=== PATIENT | female | born 1930 | race Caucasian/White ===

== ENCOUNTER 2017-05-18 13:53 | Inpatient (IN) | payer MEDICARE, OTHER ==
[~2017-05-18] VITALS: Ht 152.4 cm; Wt 47.2 kg
[2017-05-18 15:11] LABS: BASOPHILS % (AUTO) 0.4 % (0.0-2.0); EOSINOPHILS % (AUTO) 0.1 % (0.0-3.0); HEMATOCRIT 38.9 % (37.0-47.0); HEMOGLOBIN 13.7 G/DL (12.0-16.0); LYMPHOCYTES % (AUTO) 11.2 % (20.0-45.0); MEAN CORPUSCULAR VOLUME 91 FL (80-99); MONOCYTES % (AUTO) 7.2 % (1.0-10.0); NEUTROPHILS % (AUTO) 81.1 % (45.0-75.0); PLATELET COUNT 145 K/UL (150-450); RED BLOOD COUNT 4.27 M/UL (4.20-5.40); RED CELL DISTRIBUTION WIDTH 11.5 % (11.6-14.8); WHITE BLOOD COUNT 11.8 K/UL (4.8-10.8)
[2017-05-18 15:26] LABS: ANION GAP 7 mmol/L (5-15); BLOOD UREA NITROGEN 22 mg/dL (7-18); CARBON DIOXIDE 30 MMOL/L (21-32); CHLORIDE 106 MMOL/L (98-107); CREATININE 0.7 MG/DL (0.55-1.30); POTASSIUM 4.2 MMOL/L (3.5-5.1); SODIUM 143 MMOL/L (136-145)
[2017-05-18] MEDS ORDERED: Enoxaparin 60mg Inj SUBQ SCH ×2 (15:30→21:00)
--- NOTE | 2017-05-18 15:34 | Emergency Room Report ---
History of Present Illness General Chief Complaint: Lower Extremity Injury Source: Patient, Family Member Present Illness HPI Patient is 86-year-old female who presented after increased left leg swelling for approximately 2 weeks. Patient had reported some recent trauma in which she was sitting in a chair and subsequently had a minor injury. Patient had been mostly in bed for a prolonged period of time due to recent diagnosis of early Parkinson's disease. Patient had previously been healthy and takes no medications other than coenzyme Q 10. The patient denies any other locations of pain at this time. Allergies: Coded Allergies: No Known Allergies (Unverified , 05/18/17) Patient History Past Medical History: see triage record Last Menstrual Period: na Reviewed Nursing Documentation: PMH: Agreed; PSxH: Agreed Nursing Documentation-PMH Past Medical History: No Stated History Review of Systems All Other Systems: negative except mentioned in HPI Physical Exam Vital Signs Date Time Temp Pulse Resp B/P (MAP) Pulse Ox O2 Delivery O2 Flow Rate FiO2 05/18/17 14:04 98.4 82 16 136/72 98 Room Air 98.4 Sp02 EP Interpretation: reviewed, normal General Appearance: normal inspection, well appearing, no apparent distress, alert, GCS 15, thin, Chronically Ill Head: atraumatic ENT: normal ENT inspection, hearing grossly normal, normal voice Neck: normal inspection, full range of motion, supple, no bony tend Respiratory: normal inspection, lungs clear, normal breath sounds, no respiratory distress, no retraction, no wheezing Cardiovascular #1: regular rate, rhythm, edema - Asymmetric edema involving the left lower extremity greater than the right lower extremity Cardiovascular #2: 2+ femoral (R), 2+ femoral (L), 2+ dorsalis pedis (R), 2+ dorsalis pedis (L) Gastrointestinal: normal inspection, normal bowel sounds, non tender, soft, no guarding, no hernia Genitourinary: no CVA tenderness Musculoskeletal: normal inspection, back normal, normal range of motion Neurologic: normal inspection, alert, oriented x3, responsive, student officer III-XII nml as tested, speech normal Psychiatric: normal inspection, judgement/insight normal, mood/affect normal Skin: normal color, other - flaky skin rash Medical Decision Making Diagnostic Impression: Primary Impression: Deep venous thrombosis ER Course Patient is a 86-year-old female with left lower extremity swelling. Differential diagnosis included but was not limited to fracture, contusion, renal stone, vascular insufficiency, aortic aneurysm, cellulitis. Because of complexity of patient's case laboratory testing and imaging studies were ordered. The laboratory testing was normal for mild thrombocytopenia. Duplex imaging of the left lower leg showed evidence of acute occlusive thrombus in the common femoral vein to the distal superficial femoral veins. The patient was given Lovenox. Dr. Gomez was contacted for inpatient management due to panel physician. Labs Test 05/18/17 14:50 White Blood Count 11.8 K/UL (4.8-10.8) Red Blood Count 4.27 M/UL (4.20-5.40) Hemoglobin 13.7 G/DL (12.0-16.0) Hematocrit 38.9 % (37.0-47.0) Mean Corpuscular Volume 91 FL (80-99) Mean Corpuscular Hemoglobin 32.0 PG (27.0-31.0) Mean Corpuscular Hemoglobin Concent 35.2 G/DL (32.0-36.0) Red Cell Distribution Width 11.5 % (11.6-14.8) Platelet Count 145 K/UL (150-450) Mean Platelet Volume 7.0 FL (6.5-10.1) Neutrophils (%) (Auto) 81.1 % (45.0-75.0) Lymphocytes (%) (Auto) 11.2 % (20.0-45.0) Monocytes (%) (Auto) 7.2 % (1.0-10.0) Eosinophils (%) (Auto) 0.1 % (0.0-3.0) Basophils (%) (Auto) 0.4 % (0.0-2.0) Prothrombin Time 10.9 SEC (9.30-11.50) Prothromb Time International Ratio 1.0 (0.9-1.1) Activated Partial Thromboplast Time 24 SEC (23-33) Sodium Level 143 MMOL/L (136-145) Potassium Level 4.2 MMOL/L (3.5-5.1) Chloride Level 106 MMOL/L (98-107) Carbon Dioxide Level 30 MMOL/L (21-32) Anion Gap 7 mmol/L (5-15) Blood Urea Nitrogen 22 mg/dL (7-18) Creatinine 0.7 MG/DL (0.55-1.30) Estimat Glomerular Filtration Rate mL/min (>60) Glucose Level 100 MG/DL (74-106) Calcium Level 10.0 MG/DL (8.5-10.1) EKG Diagnostic Results Rate: normal Rhythm: NSR ST Segments: no acute changes Last Vital Signs Date Time Temp Pulse Resp B/P (MAP) Pulse Ox O2 Delivery O2 Flow Rate FiO2 05/18/17 14:04 98.4 82 16 136/72 98 Room Air 98.4 Status: unchanged Disposition: ADMITTED INPATIENT Condition: Serious Scripts No Active Prescriptions or Reported Meds Referrals: SHIRLEY LIN (PCP) Renato Hernadez May 18, 2017 15:34
[2017-05-18 15:38] LABS: ALANINE AMINOTRANSFERASE 34 U/L (12-78); ALBUMIN 3.9 G/DL (3.4-5.0); ALBUMIN/GLOBULIN RATIO 1.3 (1.0-2.7); ALKALINE PHOSPHATASE 62 U/L (46-116); ASPARTATE AMINO TRANSFERASE 26 U/L (15-37); BILIRUBIN,TOTAL 1.1 MG/DL (0.2-1.0)
[2017-05-18 15:40] LABS: BILIRUBIN,DIRECT 0.3 MG/DL (0.0-0.3)
--- NOTE | 2017-05-18 17:31 | Diagnostic Imaging Report ---
Indication: Shortness of breath Technique: One view of the chest Comparison: none Findings: Lungs and pleural spaces are clear. Heart size is normal Impression: No acute process
--- NOTE | 2017-05-18 18:02 | Diagnostic Imaging Report ---
Indications: Pain Technique: Two views of the left femur Comparison: None Findings: No acute fractures. No dislocations. The joint spaces are preserved. No radiopaque foreign body. Bones are osteoporotic Impression: Osteoporosis. No acute process
--- NOTE | 2017-05-18 18:02 | Diagnostic Imaging Report ---
Indication: Pain Technique: 2 views of the left tibia and fibula Comparison: none Findings: Bones are osteoporotic. No acute fractures. No dislocations. No radiopaque foreign body Impression: No acute process
[2017-05-18 18:36] VITALS: BP 114/56
[2017-05-18 20:00] VITALS: BP 122/59
[2017-05-19] VITALS: BP 109/50
[2017-05-19 04:00] VITALS: BP 106/58
[2017-05-19 08:00] VITALS: BP 104/48
--- NOTE | 2017-05-19 08:28 | History & Physical ---
History and Physical History & Physicial seen and examined. Dictation completed. Sherrie Gomez MD May 19, 2017 08:28
--- NOTE | 2017-05-19 08:30 | General Progress Note ---
Assessment/Plan Status: stable Assessment/Plan 1- Acute LLE DVT- likely provoked 2- Leukocytosis 3- Abn Troponin 4- Deconditioning Plan: Hemonch consult monitor Troponin on Lovenox Subjective ROS Limited/Unobtainable: No Constitutional: Reports: weakness HEENT: Reports: no symptoms Cardiovascular: Reports: no symptoms Respiratory: Reports: no symptoms Allergies: Coded Allergies: No Known Allergies (Unverified , 05/18/17) Objective Last 24 Hour Vital Signs Date Time Temp Pulse Resp B/P (MAP) Pulse Ox O2 Delivery O2 Flow Rate FiO2 05/19/17 04:00 66 05/19/17 04:00 97.7 71 18 106/58 94 97.7 05/19/17 00:00 96.9 63 18 109/50 94 96.9 05/19/17 00:00 75 05/18/17 20:00 91 05/18/17 20:00 97.9 75 18 122/59 96 97.9 05/18/17 18:36 97.9 82 18 114/56 97 97.9 05/18/17 18:06 98.4 16 136/72 98 Room Air 98.4 05/18/17 14:04 98.4 82 16 136/72 98 Room Air 98.4 Intake and Output 05/18/17 05/19/17 19:00 07:00 Intake Total 0 ml 120 ml Output Total 400 ml Balance 0 ml -280 ml Intake Oral 0 ml 120 ml Output Urine Total 400 ml Laboratory Tests 05/18/17 14:50: White Blood Count 11.8H, Red Blood Count 4.27, Hemoglobin 13.7, Hematocrit 38.9 , Mean Corpuscular Volume 91, Mean Corpuscular Hemoglobin 32.0H, Mean Corpuscular Hemoglobin Concent 35.2, Red Cell Distribution Width 11.5L, Platelet Count 145L, Mean Platelet Volume 7.0, Neutrophils (%) (Auto) 81.1H, Lymphocytes (%) (Auto) 11.2L, Monocytes (%) (Auto) 7.2, Eosinophils (%) (Auto) 0.1, Basophils (%) (Auto) 0.4, Prothrombin Time 10.9, Prothromb Time International Ratio 1.0, Activated Partial Thromboplast Time 24, D-Dimer 12.16H , Sodium Level 143, Potassium Level 4.2, Chloride Level 106, Carbon Dioxide Level 30, Anion Gap 7, Blood Urea Nitrogen 22H, Creatinine 0.7, Estimat Glomerular Filtration Rate , Glucose Level 100, Calcium Level 10.0, Total Bilirubin 1.1H, Direct Bilirubin 0.3, Aspartate Amino Transf (AST/SGOT) 26, Alanine Aminotransferase (ALT/SGPT) 34, Alkaline Phosphatase 62, Troponin I 0.100H, Pro-B-Type Natriuretic Peptide 433H, Total Protein 6.9, Albumin 3.9, Globulin 3.0, Albumin/Globulin Ratio 1.3, Thyroid Stimulating Hormone (TSH) 0.885 05/19/17 06:20: White Blood Count [Pending], Red Blood Count [Pending], Hemoglobin [Pending], Hematocrit [Pending], Mean Corpuscular Volume [Pending], Mean Corpuscular Hemoglobin [Pending], Mean Corpuscular Hemoglobin Concent [Pending], Red Cell Distribution Width [Pending], Platelet Count [Pending], Mean Platelet Volume [ Pending], Neutrophils (%) (Auto) [Pending], Lymphocytes (%) (Auto) [Pending], Monocytes (%) (Auto) [Pending], Eosinophils (%) (Auto) [Pending], Basophils (%) (Auto) [Pending], Sodium Level [Pending], Potassium Level [Pending], Chloride Level [Pending], Carbon Dioxide Level [Pending], Blood Urea Nitrogen [Pending], Creatinine [Pending], Estimat Glomerular Filtration Rate [Pending], Glucose Level [Pending], Calcium Level [Pending], Total Bilirubin [Pending], Aspartate Amino Transf (AST/SGOT) [Pending], Alanine Aminotransferase (ALT/SGPT) [Pending] , Alkaline Phosphatase [Pending], Total Protein [Pending], Albumin [Pending], Globulin [Pending], Hemoglobin A1c [Pending], Triglycerides Level [Pending], Cholesterol Level [Pending], LDL Cholesterol [Pending], HDL Cholesterol [Pending ], Cholesterol/HDL Ratio [Pending] Height (Feet): 5 Height (Inches): 0.00 Weight (Pounds): 104 General Appearance: no apparent distress EENT: PERRL/EOMI Neck: supple Cardiovascular: normal rate Respiratory/Chest: lungs clear Abdomen: soft Extremities: non-tender Neurologic: animal therapist II-XII grossly normal, other - lag in memory Sherrie Gomez MD May 19, 2017 08:30
[2017-05-19 08:32] LABS: BASOPHILS % (AUTO) 0.5 % (0.0-2.0); EOSINOPHILS % (AUTO) 1.4 % (0.0-3.0); HEMATOCRIT 34.3 % (37.0-47.0); HEMOGLOBIN 11.9 G/DL (12.0-16.0); LYMPHOCYTES % (AUTO) 18.8 % (20.0-45.0); MEAN CORPUSCULAR VOLUME 91 FL (80-99); MONOCYTES % (AUTO) 9.3 % (1.0-10.0); PLATELET COUNT 134 K/UL (150-450); RED BLOOD COUNT 3.75 M/UL (4.20-5.40); RED CELL DISTRIBUTION WIDTH 11.6 % (11.6-14.8); WHITE BLOOD COUNT 8.2 K/UL (4.8-10.8)
[2017-05-19] MEDS: Pantoprazole Inj IVP SCH (08:35)
[2017-05-19 08:50] LABS: ALANINE AMINOTRANSFERASE 27 U/L (12-78); ALBUMIN 3.2 G/DL (3.4-5.0); ALBUMIN/GLOBULIN RATIO 1.2 (1.0-2.7); ALKALINE PHOSPHATASE 54 U/L (46-116); ANION GAP 7 mmol/L (5-15); ASPARTATE AMINO TRANSFERASE 22 U/L (15-37); BILIRUBIN,TOTAL 1.2 MG/DL (0.2-1.0); BLOOD UREA NITROGEN 17 mg/dL (7-18); CALCIUM 9.1 MG/DL (8.5-10.1); CARBON DIOXIDE 29 MMOL/L (21-32); CHLORIDE 106 MMOL/L (98-107); CHOLESTEROL 143 MG/DL (< 200); CREATININE 0.6 MG/DL (0.55-1.30); HDL CHOLESTEROL 88 MG/DL (40-60); POTASSIUM 3.8 MMOL/L (3.5-5.1); SODIUM 142 MMOL/L (136-145); TRIGLYCERIDES 32 MG/DL (30-150)
[2017-05-19 08:56] LABS: BILIRUBIN,DIRECT 0.2 MG/DL (0.0-0.3)
[2017-05-19 12:00] VITALS: BP 107/47
--- NOTE | 2017-05-19 12:10 | Consultation ---
History of Present Illness General Date patient seen: May 19, 2017 Chief Complaint: Lower Extremity Injury Present Illness HPI 86-year-old female who presented after increased left leg swelling for approximately 2 weeks. the pt is anxious and asking her INDUSTRIAL/ORGANIZATIONAL PSYCHOLOGIST to sit next to her. During the eval the pt was anxious and depressed. She stated that she has not been sleeping at night and has been fighting with her daughter. the pt has cognitive impairment. The pt perseverated that she has blood clot and it is a serious condition. Allergies: Coded Allergies: No Known Allergies (Unverified , 05/18/17) Medication History No Active Prescriptions or Reported Meds Patient History Limited by: medical condition History Provided By: Patient, Medical Record, PMD Healthcare decision maker Resuscitation status Full Code Advanced Directive on File No Past Medical/Surgical History Past Medical/Surgical History: (1) Deep venous thrombosis Review of Systems Psychiatric: Reports: prior hx, anxiety, depressed feelings, emotional problems Physical Exam General Appearance: no apparent distress, alert Neurologic: alert, oriented x 3, responsive, depressed affect Last 24 Hour Vital Signs Date Time Temp Pulse Resp B/P (MAP) Pulse Ox O2 Delivery O2 Flow Rate FiO2 05/19/17 08:00 99 05/19/17 08:00 97.0 93 18 104/48 95 97.0 05/19/17 04:00 66 05/19/17 04:00 97.7 71 18 106/58 94 97.7 05/19/17 00:00 96.9 63 18 109/50 94 96.9 05/19/17 00:00 75 05/18/17 20:00 91 05/18/17 20:00 97.9 75 18 122/59 96 97.9 05/18/17 18:36 97.9 82 18 114/56 97 97.9 05/18/17 18:06 98.4 16 136/72 98 Room Air 98.4 05/18/17 14:04 98.4 82 16 136/72 98 Room Air 98.4 Intake and Output 05/18/17 05/19/17 19:00 07:00 Intake Total 0 ml 120 ml Output Total 400 ml Balance 0 ml -280 ml Intake Oral 0 ml 120 ml Output Urine Total 400 ml Laboratory Tests Test 05/18/17 14:50 05/19/17 06:20 05/19/17 08:35 White Blood Count 11.8 K/UL (4.8-10.8) H 8.2 K/UL (4.8-10.8) Red Blood Count 4.27 M/UL (4.20-5.40) 3.75 M/UL (4.20-5.40) L Hemoglobin 13.7 G/DL (12.0-16.0) 11.9 G/DL (12.0-16.0) L Hematocrit 38.9 % (37.0-47.0) 34.3 % (37.0-47.0) L Mean Corpuscular Volume 91 FL (80-99) 91 FL (80-99) Mean Corpuscular Hemoglobin 32.0 PG (27.0-31.0) H 31.6 PG (27.0-31.0) H Mean Corpuscular Hemoglobin Concent 35.2 G/DL (32.0-36.0) 34.6 G/DL (32.0-36.0) Red Cell Distribution Width 11.5 % (11.6-14.8) L 11.6 % (11.6-14.8) Platelet Count 145 K/UL (150-450) L 134 K/UL (150-450) L Mean Platelet Volume 7.0 FL (6.5-10.1) 7.2 FL (6.5-10.1) Neutrophils (%) (Auto) 81.1 % (45.0-75.0) H 70.0 % (45.0-75.0) Lymphocytes (%) (Auto) 11.2 % (20.0-45.0) L 18.8 % (20.0-45.0) L Monocytes (%) (Auto) 7.2 % (1.0-10.0) 9.3 % (1.0-10.0) Eosinophils (%) (Auto) 0.1 % (0.0-3.0) 1.4 % (0.0-3.0) Basophils (%) (Auto) 0.4 % (0.0-2.0) 0.5 % (0.0-2.0) Prothrombin Time 10.9 SEC (9.30-11.50) 10.7 SEC (9.30-11.50) Prothromb Time International Ratio 1.0 (0.9-1.1) 1.0 (0.9-1.1) Activated Partial Thromboplast Time 24 SEC (23-33) D-Dimer 12.16 mg/L FEU (0.00-0.49) H Sodium Level 143 MMOL/L (136-145) 142 MMOL/L (136-145) Potassium Level 4.2 MMOL/L (3.5-5.1) 3.8 MMOL/L (3.5-5.1) Chloride Level 106 MMOL/L (98-107) 106 MMOL/L (98-107) Carbon Dioxide Level 30 MMOL/L (21-32) 29 MMOL/L (21-32) Anion Gap 7 mmol/L (5-15) 7 mmol/L (5-15) Blood Urea Nitrogen 22 mg/dL (7-18) H 17 mg/dL (7-18) Creatinine 0.7 MG/DL (0.55-1.30) 0.6 MG/DL (0.55-1.30) Estimat Glomerular Filtration Rate mL/min (>60) mL/min (>60) Glucose Level 100 MG/DL (74-106) 86 MG/DL (74-106) Calcium Level 10.0 MG/DL (8.5-10.1) 9.1 MG/DL (8.5-10.1) Total Bilirubin 1.1 MG/DL (0.2-1.0) H 1.2 MG/DL (0.2-1.0) H Direct Bilirubin 0.3 MG/DL (0.0-0.3) 0.2 MG/DL (0.0-0.3) Aspartate Amino Transf (AST/SGOT) 26 U/L (15-37) 22 U/L (15-37) Alanine Aminotransferase (ALT/SGPT) 34 U/L (12-78) 27 U/L (12-78) Alkaline Phosphatase 62 U/L (46-116) 54 U/L (46-116) Troponin I 0.100 ng/mL (0.000-0.056) 0.026 ng/mL (0.000-0.056) Pro-B-Type Natriuretic Peptide 433 pg/mL (0-125) H Total Protein 6.9 G/DL (6.4-8.2) 5.9 G/DL (6.4-8.2) L Albumin 3.9 G/DL (3.4-5.0) 3.2 G/DL (3.4-5.0) L Globulin 3.0 g/dL 2.7 g/dL Albumin/Globulin Ratio 1.3 (1.0-2.7) 1.2 (1.0-2.7) Thyroid Stimulating Hormone (TSH) 0.885 uiU/mL (0.358-3.740) Hemoglobin A1c 6.2 % (4.3-6.0) H Triglycerides Level 32 MG/DL (30-150) Cholesterol Level 143 MG/DL (< 200) LDL Cholesterol 59 mg/dL (<100) HDL Cholesterol 88 MG/DL (40-60) H Cholesterol/HDL Ratio 1.6 (3.3-4.4) L Height (Feet): 5 Height (Inches): 0.00 Weight (Pounds): 104 Medications Current Medications Medications (Trade) Dose Ordered Sig/Rufina Route PRN Reason Start Time Stop Time Status Last Admin Dose Admin Enoxaparin Sodium (Lovenox) 50 mg DAILY@1630 SUBQ 05/19/17 16:30 06/18/17 16:29 Pantoprazole (Protonix) 40 mg DAILY IVP 05/19/17 09:00 06/18/17 08:59 05/19/17 08:35 Warfarin Sodium (Coumadin per pharmacy) 1 ea DAILY PRN MISC Per rx protocol 05/19/17 04:30 06/18/17 04:29 Warfarin Sodium (Coumadin) 3 mg COUMADIN ONCE ORAL 05/19/17 17:00 05/19/17 17:01 Assessment/Plan Status: stable Assessment/Plan Anxiety d/o mdd -remeron 7.5 mg qhs -lexapro would interfere with vit K -the pt was reassured/Tonya Harmon M.D. May 19, 2017 12:10
[2017-05-19 16:00] VITALS: BP 101/49
--- NOTE | 2017-05-19 16:12 | Cardiology Report ---
APPROVED REPORT EKG Measurement Heart [id number] Normal sinus rhythm Possible Left atrial enlargement Possible Lateral infarct, age undetermined Abnormal ECG
[2017-05-19] MEDS ORDERED: Enoxaparin Sodium 300mg/3ml vial SUBQ SCH (16:30)
[2017-05-19] MEDS ORDERED: Warfarin Sodium 3mg ORAL ONE (17:00)
--- NOTE | 2017-05-19 18:45 | History and Physical Report ---
DATE OF ADMISSION: 05/18/2017 SOURCE OF INFORMATION: The patient and EMR. HISTORY OF PRESENT ILLNESS: The patient is a pleasant 86-year-old white female with unremarkable past medical history, reported possible trauma to the left lower extremity followed by increasing swelling in the same leg. The patient was assessed in the emergency room with initial stable vital signs and was found to have the acute DVT. The patient denies any shortness of breath or any chest pain. Denies any nausea, vomiting, diarrhea, or constipation. PAST SURGICAL HISTORY: Appendectomy. MEDICATIONS: Current hospital medication, warfarin pharmacy to dose, pharmacy to dose. ALLERGIES: NKDA. FAMILY HISTORY: Reviewed, noncontributory. REVIEW OF SYSTEMS: All 12 elements of review of systems reviewed, pertinent positives and negatives are documented. PHYSICAL EXAMINATION: VITAL SIGNS: Blood pressure 130/80, pulse oximetry 98% on room air, respiratory rate 18, and temperature 98.2 degrees. HEAD AND NECK: Atraumatic and normocephalic. CHEST: Clear to auscultation. HEART: S1 and S2. Regular rate and rhythm. ABDOMEN: Soft. No organomegaly. MUSCULOSKELETAL: Positive for shuffling gait secondary to the pain in the left lower extremity. Positive for swelling and edema in the left lower extremity. NEUROLOGIC: Awake, alert, and oriented x3. Positive for lack of memory. LABORATORY AND DIAGNOSTIC DATA: Labs dated 05/18/2017 shows WBC 11.8, hemoglobin 13.7, and platelets 145,000. Sodium 143, potassium 4.2, BUN 22, and creatinine 0.7. Troponin 0.1. BNP 433. ASSESSMENT AND PLAN: 1. Acute left lower extremity DVT - likely provoked. 2. Leukocytosis felt to be secondary to acute left lower extremity DVT. 3. Abnormal troponin, likely not secondary to ACS. 4. Dementia. 5. Deconditioning. 6. GI and DVT prophylaxis. PLAN OF CARE: Hematology/Oncology, Dr. Abad is consulted. We will monitor the patient's troponin and leukocyte counts. Continue with Lovenox. We will switch to new oral anticoagulation meds at discharge. Sherrie Gomez M.D. DR: JESS JOB#: [id number] CC: CASSANDRA
[2017-05-19 20:00] VITALS: BP 92/49
[2017-05-20] VITALS: BP 99/71
[2017-05-20 04:00] VITALS: BP 105/66
[2017-05-20 08:00] VITALS: BP 108/52
--- NOTE | 2017-05-20 08:45 | Consultation ---
DATE OF CONSULTATION: 05/19/2017 HEMATOLOGY/ONCOLOGY CONSULTATION CONSULTING PHYSICIAN: Enrique Abad M.D. REQUESTING PHYSICIAN: Sherrie Gomez M.D. REASON FOR CONSULTATION: Evaluation of DVT. IDENTIFYING DATA: Dear Dr. Gomez, The patient is a pleasant 86-year-old female with a past medical history significant for deconditioning as well as past medical history, which includes increased left leg swelling for the past several weeks, at this time presents with some recent trauma. She has been sitting in a chair and had a minor injury, had been mostly in bed for prolonged period of time, recently diagnosed with Parkinson disease. performed, which showed DVT, which is acute onset, has been started as well as Lovenox. Hematology Service was consulted for further evaluation and treatment of ongoing anticoagulation issues. PAST MEDICAL HISTORY: As noted above. PAST SURGICAL HISTORY: None reported. ALLERGIES: No known drug allergies. SOCIAL HISTORY: Currently, none noted. FAMILY HISTORY: Noncontributory. REVIEW OF SYSTEMS: CONSTITUTIONAL: No fever, chills, or night sweats. SKIN: No rashes, bumps, or itching. HEENT: No headache, hearing or vision changes. BREASTS: No lumps, pain, or discharge. PULMONARY: No cough, sputum, or shortness of breath. GASTROINTESTINAL: No nausea, vomiting, or diarrhea. GENITOURINARY: No dysuria, frequency, or urgency. MUSCULOSKELETAL: No joint swelling, muscle pain, or trauma. PHYSICAL EXAMINATION: VITAL SIGNS: Reviewed. GENERAL: No distress. PULMONARY: Decreased breath sounds. CARDIOVASCULAR: Regular rate. No S3 or S4. ABDOMEN: Soft, nontender, and nondistended. EXTREMITIES: No cyanosis, swelling, or edema. LABORATORY AND DIAGNOSTIC DATA: WBC 11.8, hemoglobin is 11.9, hematocrit 34, and platelet count 134,000. Coagulation, INR 1. Chemistry, BUN of 17 and creatinine 0.6. A1c is 6.2. Total bilirubin 1.2. Direct bilirubin 0.2. ASSESSMENT AND RECOMMENDATION: 1. Acute deep vein thrombosis of the left lower extremity. Currently, begin the patient on Coumadin as well as Lovenox. Maintain INR between 2 and 3. 2. Anemia of chronic disease. Continue to closely monitor for improvement. Hemoglobin goal is above 7. 3. Pancytopenia, likely secondary to underlying liver disease. Closely monitor for improvement. Platelet count 130,000. 4. Hypertension, systolic blood pressure goal less than 140. 5. Parkinson disease. Continue to closely monitor for improvement. Enrique Abad M.D. DR: RUBEN JOB#: [id number] CC:
[2017-05-20] MEDS: Pantoprazole Inj IVP SCH (09:24)
[2017-05-20 12:01] VITALS: BP 109/54
--- NOTE | 2017-05-20 12:54 | General Progress Note ---
Assessment/Plan Status: stable Assessment/Plan 1. Acute left lower extremity DVT - likely provoked. 2. Leukocytosis felt to be secondary to acute left lower extremity DVT. 3. Abnormal troponin, likely not secondary to ACS. 4. Dementia. 5. Deconditioning. 6. GI prophylaxis. 7. Deconditioning Plan: on coumadin DC to [facility] once medically stable. on Lovenox bridging I had a detailed conversation with the daughter Subjective ROS Limited/Unobtainable: No Constitutional: Reports: malaise HEENT: Reports: no symptoms Cardiovascular: Reports: no symptoms Respiratory: Reports: no symptoms Allergies: Coded Allergies: No Known Allergies (Unverified , 05/18/17) Objective Last 24 Hour Vital Signs Date Time Temp Pulse Resp B/P (MAP) Pulse Ox O2 Delivery O2 Flow Rate FiO2 05/20/17 12:01 97.5 69 18 109/54 96 Room Air 97.5 05/20/17 08:00 79 05/20/17 08:00 97.9 69 18 108/52 96 Room Air 97.9 05/20/17 04:00 61 05/20/17 04:00 97.6 62 18 105/66 97 Room Air 97.6 05/20/17 00:00 65 05/20/17 00:00 97.0 72 20 99/71 96 Room Air 97.0 05/19/17 20:00 98.6 75 20 92/49 96 Room Air 98.6 05/19/17 20:00 75 05/19/17 16:00 76 05/19/17 16:00 98.4 74 18 101/49 95 98.4 74 Intake and Output 05/19/17 05/20/17 19:00 07:00 Intake Total 360 ml Output Total 350 ml Balance 10 ml Intake Oral 360 ml Output Urine Total 350 ml # Voids 2 # Bowel Movements 2 Laboratory Tests 05/20/17 06:10: Prothrombin Time 10.5, Prothromb Time International Ratio 1.0 Height (Feet): 5 Height (Inches): 0.00 Weight (Pounds): 104 General Appearance: no apparent distress EENT: PERRL/EOMI Neck: supple Cardiovascular: normal rate Respiratory/Chest: lungs clear Abdomen: soft Extremities: other - atrophied muscle Neurologic: computer systems administrator II-XII grossly normal Sherrie Gomez MD May 20, 2017 12:54
[2017-05-20 16:00] VITALS: BP 117/58
[2017-05-20] MEDS ORDERED: Enoxaparin Sodium 300mg/3ml vial SUBQ SCH (16:30)
[2017-05-20] MEDS ORDERED: Warfarin Sodium 3mg ORAL ONE ×2 (17:00)
[2017-05-20] MEDS: Enoxaparin Sodium 300mg/3ml vial SUBQ SCH (18:15)
[2017-05-20 20:00] VITALS: BP 112/77
[2017-05-21] VITALS: BP 106/49
--- NOTE | 2017-05-21 00:13 | General Progress Note ---
Assessment/Plan Assessment/Plan 1. Acute deep vein thrombosis of the left lower extremity. --> Currently, begin the patient on Coumadin as well as Lovenox. --> Maintain INR between 2 and 3. 2. Anemia of chronic disease. --> Continue to closely monitor for improvement. Hemoglobin goal is above 7. --> Blood transfusion not required unless symptomatic or hgb below goal 3. Pancytopenia, likely secondary to underlying liver disease. --> Closely monitor for improvement. Platelet count 130,000. --> Levels improving. 4. Hypertension, systolic blood pressure goal less than 140. --> BP improved. 5. Parkinson disease. Continue to closely monitor for improvement. Subjective Date patient seen: May 20, 2017 Constitutional: Denies: no symptoms, chills, diaphoresis, fever, malaise, weakness, other HEENT: Denies: no symptoms, eye pain, blurred vision, tearing, double vision, ear pain, ear discharge, nose pain, nose congestion, throat pain, throat swelling, mouth pain, mouth swelling, other Cardiovascular: Denies: no symptoms, chest pain, edema, irregular heart rate, lightheadedness, palpitations, syncope, other Respiratory: Denies: no symptoms, cough, orthopnea, shortness of breath, SOB with excertion, SOB at rest, sputum, stridor, wheezing, other Gastrointestinal/Abdominal: Denies: no symptoms, abdomen distended, abdominal pain, black stools, tarry stools, blood in stool, constipated, diarrhea, difficulty swallowing, nausea, poor appetite, poor fluid intake, rectal bleeding , vomiting, other Genitourinary: Denies: no symptoms, burning, discharge, frequency, flank pain, hematuria, incontinence, pain, urgency, other Neurologic/Psychiatric: Denies: no symptoms, anxiety, depressed, emotional problems, headache, numbness, paresthesia, pre-existing deficit, seizure, tingling, tremors, weakness, other Hematologic/Lymphatic: Reports: anemia Allergies: Coded Allergies: No Known Allergies (Unverified , 05/18/17) Subjective Wbc and hgb levels improved. On anticoagulation. Objective Last 24 Hour Vital Signs Date Time Temp Pulse Resp B/P (MAP) Pulse Ox O2 Delivery O2 Flow Rate FiO2 05/20/17 20:00 99.0 76 20 112/77 93 99.0 05/20/17 16:00 99.2 75 18 117/58 96 Room Air 99.2 05/20/17 12:01 97.5 69 18 109/54 96 Room Air 97.5 05/20/17 12:00 74 05/20/17 08:00 79 05/20/17 08:00 97.9 69 18 108/52 96 Room Air 97.9 05/20/17 04:00 61 05/20/17 04:00 97.6 62 18 105/66 97 Room Air 97.6 Intake and Output 05/20/17 05/21/17 19:00 07:00 Intake Total 590 ml Balance 590 ml Intake Oral 590 ml # Voids 1 Laboratory Tests 05/20/17 06:10: Prothrombin Time 10.5, Prothromb Time International Ratio 1.0 Height (Feet): 5 Height (Inches): 0.00 Weight (Pounds): 104 General Appearance: no apparent distress Respiratory/Chest: lungs clear Abdomen: soft Enrique Abad MD May 21, 2017 00:13
[2017-05-21 04:00] VITALS: BP 121/60
[2017-05-21 08:00] VITALS: BP 102/49
[2017-05-21] MEDS: Pantoprazole Inj IVP SCH (08:20)
--- NOTE | 2017-05-21 08:51 | Diagnostic Imaging Report ---
APPROVED REPORT CPT Code: 87026 Present Symptoms Comments: Swelling LEFT LEG: Venous imaging reveals acute occlusive thrombus in the common femoral to distal superficial femoral veins. Imaging also reveals acute thrombus in the greater saphenous vein. Remainder of the deep venous system within normal limits. No evidence of thrombus in the popliteal and calf veins. Dr. Hernadez was notified of abnormal results at 1515 hours. INCIDENTAL FINDINGS: Imaging of the left popliteal fossa reveals a Bakers cyst measuring approximately 2.9 x 1.2 cm.
[2017-05-21 12:00] VITALS: BP 110/50
[2017-05-21] MEDS ORDERED: LORazepam 1mg tab ORAL PRN (14:00)
--- NOTE | 2017-05-21 14:10 | General Progress Note ---
Assessment/Plan Status: stable, progressing Assessment/Plan the pt is still anxious and depressed the pt was reassured cont remeron start ativan prn Subjective Date patient seen: May 21, 2017 Neurologic/Psychiatric: Reports: anxiety, depressed Allergies: Coded Allergies: No Known Allergies (Unverified , 05/18/17) Subjective the pt was anxious and insisted to check her throat. She believes she has flu. the pts throat was wnl. Objective Last 24 Hour Vital Signs Date Time Temp Pulse Resp B/P (MAP) Pulse Ox O2 Delivery O2 Flow Rate FiO2 05/21/17 08:00 98.0 86 18 102/49 98 Room Air 98.0 05/21/17 04:00 98.1 70 20 121/60 97 98.1 05/21/17 00:00 98.5 70 20 106/49 95 Room Air 98.5 05/20/17 20:00 99.0 76 20 112/77 93 99.0 05/20/17 16:00 99.2 75 18 117/58 96 Room Air 99.2 Intake and Output 05/20/17 05/21/17 19:00 07:00 Intake Total 590 ml Balance 590 ml Intake Oral 590 ml # Voids 1 2 Laboratory Tests 05/21/17 06:50: Prothrombin Time 10.1, Prothromb Time International Ratio 1.0 Height (Feet): 5 Height (Inches): 0.00 Weight (Pounds): 104 General Appearance: no apparent distress, alert Neurologic: alert, oriented x 3, responsive, depressed affect Tonya Andrews M.D. May 21, 2017 14:10
[2017-05-21 16:00] VITALS: BP 100/58
[2017-05-21] MEDS ORDERED: Warfarin Sodium 5mg ORAL ONE (17:00)
[2017-05-21] MEDS: Enoxaparin Sodium 300mg/3ml vial SUBQ SCH (17:26)
[2017-05-21 20:00] VITALS: BP 110/54
--- NOTE | 2017-05-21 23:26 | General Progress Note ---
Assessment/Plan Assessment/Plan 1. Acute deep vein thrombosis of the left lower extremity. --> Currently, begin the patient on Coumadin as well as Lovenox. --> Maintain INR between 2 and 3. Monitor closely. 2. Anemia of chronic disease. --> Continue to closely monitor for improvement. Hemoglobin goal is above 7. --> Blood transfusion not required unless symptomatic or hgb below goal --> Hemoglobin has been stable. 3. Pancytopenia, likely secondary to underlying liver disease. --> Closely monitor for improvement. Platelet count 130,000. --> Levels improving. 4. Hypertension, systolic blood pressure goal less than 140. --> BP improved. 5. Parkinson disease. Continue to closely monitor for improvement. Subjective Date patient seen: May 21, 2017 Constitutional: Denies: no symptoms, chills, diaphoresis, fever, malaise, weakness, other HEENT: Denies: no symptoms, eye pain, blurred vision, tearing, double vision, ear pain, ear discharge, nose pain, nose congestion, throat pain, throat swelling, mouth pain, mouth swelling, other Cardiovascular: Denies: no symptoms, chest pain, edema, irregular heart rate, lightheadedness, palpitations, syncope, other Respiratory: Denies: no symptoms, cough, orthopnea, shortness of breath, SOB with excertion, SOB at rest, sputum, stridor, wheezing, other Gastrointestinal/Abdominal: Denies: no symptoms, abdomen distended, abdominal pain, black stools, tarry stools, blood in stool, constipated, diarrhea, difficulty swallowing, nausea, poor appetite, poor fluid intake, rectal bleeding , vomiting, other Genitourinary: Denies: no symptoms, burning, discharge, frequency, flank pain, hematuria, incontinence, pain, urgency, other Neurologic/Psychiatric: Denies: no symptoms, anxiety, depressed, emotional problems, headache, numbness, paresthesia, pre-existing deficit, seizure, tingling, tremors, weakness, other Hematologic/Lymphatic: Reports: anemia Allergies: Coded Allergies: No Known Allergies (Unverified , 05/18/17) Subjective No acute events. H/H stable. Afebrile. Objective Last 24 Hour Vital Signs Date Time Temp Pulse Resp B/P (MAP) Pulse Ox O2 Delivery O2 Flow Rate FiO2 05/21/17 20:00 98.5 74 20 110/54 97 98.5 05/21/17 16:00 98.6 73 18 100/58 95 Room Air 98.6 05/21/17 12:00 97.8 88 18 110/50 99 Room Air 97.8 05/21/17 08:00 98.0 86 18 102/49 98 Room Air 98.0 05/21/17 04:00 98.1 70 20 121/60 97 98.1 05/21/17 00:00 98.5 70 20 106/49 95 Room Air 98.5 Intake and Output 05/20/17 05/21/17 19:00 07:00 Intake Total 590 ml Balance 590 ml Intake Oral 590 ml # Voids 1 2 Laboratory Tests 05/21/17 06:50: Prothrombin Time 10.1, Prothromb Time International Ratio 1.0 Height (Feet): 5 Height (Inches): 0.00 Weight (Pounds): 104 General Appearance: no apparent distress Respiratory/Chest: lungs clear Abdomen: soft Enrique Abad MD May 21, 2017 23:26
[2017-05-22] VITALS (7 sets, daily range): BP systolic 94–112; BP diastolic 47–61
[2017-05-22] MEDS: Pantoprazole Inj IVP SCH (08:39)
--- NOTE | 2017-05-22 12:13 | Internal Med Progress Note ---
Subjective Date of Service: May 21, 2017 Physician Name MichelleAnabelle Attending Physician Sherrie Gomez MD Current Medications Medications (Trade) Dose Ordered Sig/Rufina Route PRN Reason Start Time Stop Time Status Last Admin Dose Admin Enoxaparin Sodium (Lovenox) 50 mg DAILY@1630 SUBQ 05/20/17 18:00 06/19/17 17:59 05/21/17 17:26 Lorazepam (Ativan) 1 mg Q6H PRN ORAL For Anxiety 05/21/17 14:00 05/28/17 13:59 Mirtazapine (Remeron) 15 mg QHS ORAL 05/21/17 21:00 06/20/17 20:59 Pantoprazole (Protonix) 40 mg DAILY IVP 05/21/17 09:00 06/18/17 08:59 05/22/17 08:39 Warfarin Sodium (Coumadin per pharmacy) 1 ea DAILY PRN MISC Per rx protocol 05/20/17 14:00 06/19/17 13:59 Allergies: Coded Allergies: No Known Allergies (Unverified , 05/18/17) ROS Limited/Unobtainable: No Constitutional: Reports: no symptoms HEENT: Reports: no symptoms Cardiovascular: Reports: no symptoms Respiratory: Reports: no symptoms Gastrointestinal/Abdominal: Reports: no symptoms Genitourinary: Reports: no symptoms Neurologic/Psychiatric: Reports: no symptoms Subjective Late entry for 05/21/17-Computer down. 86 YO F admitted with left leg pain. Now DVT Left leg. Cover for Int Med-Dr Gomez. Objective Last Vital Signs Date Time Temp Pulse Resp B/P (MAP) Pulse Ox O2 Delivery O2 Flow Rate FiO2 05/22/17 08:00 97.9 84 17 103/47 96 Room Air 97.9 General Appearance: WD/WN, no apparent distress, alert EENT: PERRL/EOMI, normal ENT inspection, TMs normal Neck: non-tender, normal alignment, supple, normal inspection Cardiovascular: normal peripheral pulses, normal rate, regular rhythm, no gallop/murmur, no JVD Respiratory/Chest: chest wall non-tender, lungs clear, normal breath sounds, no respiratory distress, no accessory muscle use Abdomen: normal bowel sounds, non tender, soft, no organomegaly, no mass Extremities: normal range of motion, non-tender Edema: trace edema 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 (2) HTN (hypertension) (3) Anemia (4) Parkinson disease Assessment/Plan Discharge planning: [facility] May 22, 2017 12:13
--- NOTE | 2017-05-22 12:19 | Internal Med Progress Note ---
Subjective Date of Service: May 22, 2017 Physician Name SharpEleazar Attending Physician Sherrie Gomez MD Current Medications Medications (Trade) Dose Ordered Sig/Rufina Route PRN Reason Start Time Stop Time Status Last Admin Dose Admin Enoxaparin Sodium (Lovenox) 50 mg DAILY@1630 SUBQ 05/20/17 18:00 06/19/17 17:59 05/21/17 17:26 Lorazepam (Ativan) 1 mg Q6H PRN ORAL For Anxiety 05/21/17 14:00 05/28/17 13:59 Mirtazapine (Remeron) 15 mg QHS ORAL 05/21/17 21:00 06/20/17 20:59 Pantoprazole (Protonix) 40 mg DAILY IVP 05/21/17 09:00 06/18/17 08:59 05/22/17 08:39 Warfarin Sodium (Coumadin per pharmacy) 1 ea DAILY PRN MISC Per rx protocol 05/20/17 14:00 06/19/17 13:59 Allergies: Coded Allergies: No Known Allergies (Unverified , 05/18/17) ROS Limited/Unobtainable: No Constitutional: Reports: no symptoms HEENT: Reports: no symptoms Cardiovascular: Reports: no symptoms Respiratory: Reports: no symptoms Gastrointestinal/Abdominal: Reports: no symptoms Genitourinary: Reports: no symptoms Neurologic/Psychiatric: Reports: no symptoms Subjective 86 YO F admitted with left leg pain. Now DVT Left leg. Cover for Int Med-Dr Gomez. Objective Last Vital Signs Date Time Temp Pulse Resp B/P (MAP) Pulse Ox O2 Delivery O2 Flow Rate FiO2 05/22/17 12:00 98.9 18 18 110/54 96 Room Air 98.9 Laboratory Tests Test 05/22/17 08:10 Prothrombin Time 10.7 SEC (9.30-11.50) Prothromb Time International Ratio 1.0 (0.9-1.1) Intake and Output 05/21/17 05/22/17 19:00 07:00 Intake Total 980 ml Output Total 1 ml Balance 980 ml -1 ml Intake Oral 980 ml Output Urine Total 1 ml # Voids 4 Objective General Appearance: WD/WN, no apparent distress, alert EENT: PERRL/EOMI, normal ENT inspection, TMs normal Neck: non-tender, normal alignment, supple, normal inspection Cardiovascular: normal peripheral pulses, normal rate, regular rhythm, no gallop/murmur, no JVD Respiratory/Chest: chest wall non-tender, lungs clear, normal breath sounds, no respiratory distress, no accessory muscle use Abdomen: normal bowel sounds, non tender, soft, no organomegaly, no mass Extremities: normal range of motion, non-tender Edema: trace edema 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 (2) HTN (hypertension) (3) Anemia (4) Parkinson disease Status: unchanged Assessment/Plan Discharge planning: [facility] ELEAZAR SHARP May 22, 2017 12:19
[2017-05-22] MEDS ORDERED: Warfarin Sodium 5mg ORAL SCH (17:00)
[2017-05-22] MEDS ORDERED: Enoxaparin Sodium 300mg/3ml vial SUBQ SCH (18:00)
[2017-05-22] MEDS: PARoxetine 10mg tab ORAL SCH (21:00)
[2017-05-23] VITALS: BP 103/57
[2017-05-23 04:00] VITALS: BP 112/59
[2017-05-23 07:24] LABS: INR 1.2 (0.9-1.1)
[2017-05-23 07:30] LABS: EOSINOPHILS % (AUTO) 2.2 % (0.0-3.0); HEMATOCRIT 34.5 % (37.0-47.0); HEMOGLOBIN 12.1 G/DL (12.0-16.0); LYMPHOCYTES % (AUTO) 21.3 % (20.0-45.0); MEAN CORPUSCULAR VOLUME 90 FL (80-99); MONOCYTES % (AUTO) 8.3 % (1.0-10.0); NEUTROPHILS % (AUTO) 67.2 % (45.0-75.0); PLATELET COUNT 171 K/UL (150-450); RED BLOOD COUNT 3.82 M/UL (4.20-5.40); RED CELL DISTRIBUTION WIDTH 11.1 % (11.6-14.8); WHITE BLOOD COUNT 8.1 K/UL (4.8-10.8)
[2017-05-23 07:39] LABS: ANION GAP 7 mmol/L (5-15); BLOOD UREA NITROGEN 22 mg/dL (7-18); CARBON DIOXIDE 30 MMOL/L (21-32); CHLORIDE 107 MMOL/L (98-107); CREATININE 0.6 MG/DL (0.55-1.30); SODIUM 144 MMOL/L (136-145)
[2017-05-23 08:00] VITALS: BP 129/59
[2017-05-23] MEDS: Pantoprazole Inj IVP SCH (08:50)
--- NOTE | 2017-05-23 12:02 | Internal Med Progress Note ---
Subjective Date of Service: May 23, 2017 Physician Name SharpEleazar Attending Physician Sherrie Gomez MD Current Medications Medications (Trade) Dose Ordered Sig/Rufina Route PRN Reason Start Time Stop Time Status Last Admin Dose Admin Lorazepam (Ativan) 1 mg Q6H PRN ORAL For Anxiety 05/21/17 14:00 05/28/17 13:59 Pantoprazole (Protonix) 40 mg DAILY IVP 05/21/17 09:00 06/18/17 08:59 05/23/17 08:50 Paroxetine HCl (Paxil) 10 mg BEDTIME ORAL 05/22/17 21:00 06/21/17 20:59 Rivaroxaban (Xarelto) 15 mg BID ORAL 05/23/17 16:30 06/13/17 09:01 Rivaroxaban (Xarelto) 20 mg DAILY ORAL 06/13/17 18:00 11/19/17 17:59 Allergies: Coded Allergies: No Known Allergies (Unverified , 05/18/17) ROS Limited/Unobtainable: No Constitutional: Reports: no symptoms HEENT: Reports: no symptoms Cardiovascular: Reports: no symptoms Respiratory: Reports: no symptoms Gastrointestinal/Abdominal: Reports: no symptoms Genitourinary: Reports: no symptoms Neurologic/Psychiatric: Reports: no symptoms Subjective 86 YO F admitted with left leg pain. Now DVT Left leg. Cover for Int Med-Dr Gomez. Objective Last Vital Signs Date Time Temp Pulse Resp B/P (MAP) Pulse Ox O2 Delivery O2 Flow Rate FiO2 05/23/17 08:00 98.6 74 20 129/59 98 Room Air 98.6 Laboratory Tests Test 05/23/17 06:10 White Blood Count 8.1 K/UL (4.8-10.8) Red Blood Count 3.82 M/UL (4.20-5.40) L Hemoglobin 12.1 G/DL (12.0-16.0) Hematocrit 34.5 % (37.0-47.0) L Mean Corpuscular Volume 90 FL (80-99) Mean Corpuscular Hemoglobin 31.7 PG (27.0-31.0) H Mean Corpuscular Hemoglobin Concent 35.0 G/DL (32.0-36.0) Red Cell Distribution Width 11.1 % (11.6-14.8) L Platelet Count 171 K/UL (150-450) Mean Platelet Volume 6.9 FL (6.5-10.1) Neutrophils (%) (Auto) 67.2 % (45.0-75.0) Lymphocytes (%) (Auto) 21.3 % (20.0-45.0) Monocytes (%) (Auto) 8.3 % (1.0-10.0) Eosinophils (%) (Auto) 2.2 % (0.0-3.0) Basophils (%) (Auto) 1.0 % (0.0-2.0) Prothrombin Time 13.0 SEC (9.30-11.50) H Prothromb Time International Ratio 1.2 (0.9-1.1) H Sodium Level 144 MMOL/L (136-145) Potassium Level 4.0 MMOL/L (3.5-5.1) Chloride Level 107 MMOL/L (98-107) Carbon Dioxide Level 30 MMOL/L (21-32) Anion Gap 7 mmol/L (5-15) Blood Urea Nitrogen 22 mg/dL (7-18) H Creatinine 0.6 MG/DL (0.55-1.30) Estimat Glomerular Filtration Rate mL/min (>60) Glucose Level 94 MG/DL (74-106) Calcium Level 9.0 MG/DL (8.5-10.1) Intake and Output 05/22/17 05/23/17 19:00 07:00 Intake Total 650 ml 200 ml Balance 650 ml 200 ml Intake Oral 200 ml Other 650 ml # Voids 3 2 Objective General Appearance: WD/WN, no apparent distress, alert EENT: PERRL/EOMI, normal ENT inspection, TMs normal Neck: non-tender, normal alignment, supple, normal inspection Cardiovascular: normal peripheral pulses, normal rate, regular rhythm, no gallop/murmur, no JVD Respiratory/Chest: chest wall non-tender, lungs clear, normal breath sounds, no respiratory distress, no accessory muscle use Abdomen: normal bowel sounds, non tender, soft, no organomegaly, no mass Extremities: normal range of motion, non-tender Edema: trace edema 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 (2) HTN (hypertension) (3) Anemia (4) Parkinson disease Assessment/Plan Discharge planning: [facility] ELEAZAR SHARP May 23, 2017 12:02
[2017-05-23 12:05] VITALS: BP 102/51
--- NOTE | 2017-05-23 13:35 | General Progress Note ---
Assessment/Plan Assessment/Plan 1. Acute deep vein thrombosis of the left lower extremity. --> Currently, begin the patient on Coumadin as well as Lovenox. --> Maintain INR between 2 and 3. Monitor closely. --> Begin apeix and warfarin 2. Anemia of chronic disease. Mild at this time. --> Continue to closely monitor for improvement. Hemoglobin goal is above 7. --> Blood transfusion not required unless symptomatic or hgb below goal --> Hemoglobin has been stable. 3. Pancytopenia, likely secondary to underlying liver disease. --> Closely monitor for improvement. Platelet count 130,000. --> Levels improving. 4. Hypertension, systolic blood pressure goal less than 140. --> BP improved. 5. Parkinson disease. Continue to closely monitor for improvement. Subjective Date patient seen: May 22, 2017 Constitutional: Denies: no symptoms, chills, diaphoresis, fever, malaise, weakness, other HEENT: Denies: no symptoms, eye pain, blurred vision, tearing, double vision, ear pain, ear discharge, nose pain, nose congestion, throat pain, throat swelling, mouth pain, mouth swelling, other Cardiovascular: Denies: no symptoms, chest pain, edema, irregular heart rate, lightheadedness, palpitations, syncope, other Respiratory: Denies: no symptoms, cough, orthopnea, shortness of breath, SOB with excertion, SOB at rest, sputum, stridor, wheezing, other Gastrointestinal/Abdominal: Denies: no symptoms, abdomen distended, abdominal pain, black stools, tarry stools, blood in stool, constipated, diarrhea, difficulty swallowing, nausea, poor appetite, poor fluid intake, rectal bleeding , vomiting, other Genitourinary: Denies: no symptoms, burning, discharge, frequency, flank pain, hematuria, incontinence, pain, urgency, other Neurologic/Psychiatric: Denies: no symptoms, anxiety, depressed, emotional problems, headache, numbness, paresthesia, pre-existing deficit, seizure, tingling, tremors, weakness, other Hematologic/Lymphatic: Reports: anemia Allergies: Coded Allergies: No Known Allergies (Unverified , 05/18/17) Subjective H/H stable. No fever or chills. On anticoagulation. Objective Last 24 Hour Vital Signs Date Time Temp Pulse Resp B/P (MAP) Pulse Ox O2 Delivery O2 Flow Rate FiO2 4/1/18 12:05 97.9 76 21 102/51 99 Room Air 97.9 05/23/17 08:00 98.6 74 20 129/59 98 Room Air 98.6 05/23/17 04:00 98.1 68 20 112/59 100 98.1 05/23/17 00:00 98.5 73 20 103/57 96 98.5 05/22/17 20:00 99.0 78 20 112/57 100 99.0 05/22/17 16:00 97.8 78 18 111/54 100 Room Air 97.8 Intake and Output 05/22/17 05/23/17 19:00 07:00 Intake Total 650 ml 200 ml Balance 650 ml 200 ml Intake Oral 200 ml Other 650 ml # Voids 3 2 Laboratory Tests 05/23/17 06:10: White Blood Count 8.1, Red Blood Count 3.82L, Hemoglobin 12.1, Hematocrit 34.5L , Mean Corpuscular Volume 90, Mean Corpuscular Hemoglobin 31.7H, Mean Corpuscular Hemoglobin Concent 35.0, Red Cell Distribution Width 11.1L, Platelet Count 171, Mean Platelet Volume 6.9, Neutrophils (%) (Auto) 67.2, Lymphocytes (%) (Auto) 21.3, Monocytes (%) (Auto) 8.3, Eosinophils (%) (Auto) 2.2, Basophils (%) (Auto) 1.0, Prothrombin Time 13.0H, Prothromb Time International Ratio 1.2H, Sodium Level 144, Potassium Level 4.0, Chloride Level 107, Carbon Dioxide Level 30, Anion Gap 7, Blood Urea Nitrogen 22H, Creatinine 0.6, Estimat Glomerular Filtration Rate , Glucose Level 94, Calcium Level 9.0 Height (Feet): 5 Height (Inches): 0.00 Weight (Pounds): 104 General Appearance: no apparent distress EENT: normal ENT inspection Cardiovascular: normal rate Abdomen: soft Enrique Abad MD May 23, 2017 13:35
[2017-05-23 16:09] VITALS: BP 106/52
[2017-05-23] MEDS: Xarelto 15mg tab ORAL SCH (16:38)
[2017-05-23 20:00] VITALS: BP 117/60
[2017-05-23] MEDS: PARoxetine 10mg tab ORAL SCH (20:00)
[2017-05-24] VITALS: BP 111/55
--- NOTE | 2017-05-24 00:49 | General Progress Note ---
Assessment/Plan Assessment/Plan 1. Acute deep vein thrombosis of the left lower extremity. --> Currently, begin the patient on Coumadin as well as Lovenox. --> Maintain INR between 2 and 3. Monitor closely. --> Begin apeix and warfarin 2. Anemia of chronic disease. Mild at this time. --> Continue to closely monitor for improvement. Hemoglobin goal is above 7. --> Blood transfusion not required unless symptomatic or hgb below goal --> Hemoglobin has been stable, no prbc needed at this time 3. Pancytopenia, likely secondary to underlying liver disease. --> Closely monitor for improvement. Platelet count 130,000. --> Levels improving. 4. Hypertension, systolic blood pressure goal less than 140. --> BP improved. 5. Parkinson disease. Continue to closely monitor for improvement. Subjective Date patient seen: May 23, 2017 Constitutional: Denies: no symptoms, chills, diaphoresis, fever, malaise, weakness, other HEENT: Denies: no symptoms, eye pain, blurred vision, tearing, double vision, ear pain, ear discharge, nose pain, nose congestion, throat pain, throat swelling, mouth pain, mouth swelling, other Cardiovascular: Denies: no symptoms, chest pain, edema, irregular heart rate, lightheadedness, palpitations, syncope, other Respiratory: Denies: no symptoms, cough, orthopnea, shortness of breath, SOB with excertion, SOB at rest, sputum, stridor, wheezing, other Gastrointestinal/Abdominal: Denies: no symptoms, abdomen distended, abdominal pain, black stools, tarry stools, blood in stool, constipated, diarrhea, difficulty swallowing, nausea, poor appetite, poor fluid intake, rectal bleeding , vomiting, other Genitourinary: Denies: no symptoms, burning, discharge, frequency, flank pain, hematuria, incontinence, pain, urgency, other Neurologic/Psychiatric: Denies: no symptoms, anxiety, depressed, emotional problems, headache, numbness, paresthesia, pre-existing deficit, seizure, tingling, tremors, weakness, other Hematologic/Lymphatic: Reports: anemia Allergies: Coded Allergies: No Known Allergies (Unverified , 05/18/17) Subjective No respiratory distress. On anticoagulation. Objective Last 24 Hour Vital Signs Date Time Temp Pulse Resp B/P (MAP) Pulse Ox O2 Delivery O2 Flow Rate FiO2 4/1/18 20:00 98.3 71 18 117/60 95 98.3 05/23/17 16:09 98.9 79 18 106/52 97 Room Air 98.9 05/23/17 12:05 97.9 76 21 102/51 99 Room Air 97.9 05/23/17 08:00 98.6 74 20 129/59 98 Room Air 98.6 05/23/17 04:00 98.1 68 20 112/59 100 98.1 Intake and Output 05/23/17 05/24/17 19:00 07:00 Intake Total 720 ml Balance 720 ml Intake Oral 720 ml # Voids 3 # Bowel Movements 1 Laboratory Tests 05/23/17 06:10: White Blood Count 8.1, Red Blood Count 3.82L, Hemoglobin 12.1, Hematocrit 34.5L , Mean Corpuscular Volume 90, Mean Corpuscular Hemoglobin 31.7H, Mean Corpuscular Hemoglobin Concent 35.0, Red Cell Distribution Width 11.1L, Platelet Count 171, Mean Platelet Volume 6.9, Neutrophils (%) (Auto) 67.2, Lymphocytes (%) (Auto) 21.3, Monocytes (%) (Auto) 8.3, Eosinophils (%) (Auto) 2.2, Basophils (%) (Auto) 1.0, Prothrombin Time 13.0H, Prothromb Time International Ratio 1.2H, Sodium Level 144, Potassium Level 4.0, Chloride Level 107, Carbon Dioxide Level 30, Anion Gap 7, Blood Urea Nitrogen 22H, Creatinine 0.6, Estimat Glomerular Filtration Rate , Glucose Level 94, Calcium Level 9.0 Height (Feet): 5 Height (Inches): 0.00 Weight (Pounds): 104 General Appearance: no apparent distress Cardiovascular: normal rate Respiratory/Chest: lungs clear Abdomen: soft Enrique Abad MD May 24, 2017 00:49
[2017-05-24 03:51] VITALS: BP 100/53
[2017-05-24 06:31] LABS: BASOPHILS % (AUTO) 0.9 % (0.0-2.0); EOSINOPHILS % (AUTO) 2.5 % (0.0-3.0); HEMATOCRIT 36.2 % (37.0-47.0); HEMOGLOBIN 12.2 G/DL (12.0-16.0); LYMPHOCYTES % (AUTO) 23.5 % (20.0-45.0); MEAN CORPUSCULAR VOLUME 91 FL (80-99); MONOCYTES % (AUTO) 9.3 % (1.0-10.0); NEUTROPHILS % (AUTO) 63.8 % (45.0-75.0); PLATELET COUNT 187 K/UL (150-450); RED BLOOD COUNT 3.97 M/UL (4.20-5.40); RED CELL DISTRIBUTION WIDTH 11.2 % (11.6-14.8)
[2017-05-24 06:32] LABS: INR 1.5 (0.9-1.1)
[2017-05-24 07:36] LABS: ANION GAP 5 mmol/L (5-15); BLOOD UREA NITROGEN 22 mg/dL (7-18); CALCIUM 9.1 MG/DL (8.5-10.1); CARBON DIOXIDE 31 MMOL/L (21-32); CHLORIDE 107 MMOL/L (98-107); CREATININE 0.6 MG/DL (0.55-1.30); POTASSIUM 4.1 MMOL/L (3.5-5.1); SODIUM 142 MMOL/L (136-145)
[2017-05-24 08:00] VITALS: BP 110/52
[2017-05-24] MEDS: Xarelto 15mg tab ORAL SCH (08:59)
[2017-05-24] MEDS: Pantoprazole Inj IVP SCH (08:59)
[2017-05-24] MEDS ORDERED: XARELTO15 MG ORAL (10:38)
[2017-05-24] MEDS ORDERED: PAROXETINE HCL10 MG ORAL (10:38)
--- NOTE | 2017-05-24 10:41 | General Progress Note ---
Assessment/Plan Status: stable Assessment/Plan 1. Acute left lower extremity DVT - likely provoked. 2. Leukocytosis felt to be secondary to acute left lower extremity DVT. 3. Abnormal troponin, likely not secondary to ACS. 4. Dementia. 5. Deconditioning. 6. GI prophylaxis. 7. Deconditioning 8. Hepatitc C Plan: DC to [facility] today DC ativan discussed the care with Leodan, the daughter Subjective ROS Limited/Unobtainable: No Constitutional: Reports: malaise HEENT: Reports: no symptoms Cardiovascular: Reports: no symptoms Respiratory: Reports: no symptoms Allergies: Coded Allergies: No Known Allergies (Unverified , 05/18/17) Objective Last 24 Hour Vital Signs Date Time Temp Pulse Resp B/P (MAP) Pulse Ox O2 Delivery O2 Flow Rate FiO2 05/24/17 03:51 97.6 69 18 100/53 96 97.6 05/24/17 00:00 97.7 63 18 111/55 97 97.7 05/23/17 20:00 98.3 71 18 117/60 95 98.3 05/23/17 16:09 98.9 79 18 106/52 97 Room Air 98.9 05/23/17 12:05 97.9 76 21 102/51 99 Room Air 97.9 Intake and Output 05/23/17 05/24/17 19:00 07:00 Intake Total 720 ml Output Total 400 ml Balance 720 ml -400 ml Intake Oral 720 ml Output Urine Total 400 ml # Voids 3 2 # Bowel Movements 1 Laboratory Tests 05/24/17 05:25: White Blood Count 8.0, Red Blood Count 3.97L, Hemoglobin 12.2, Hematocrit 36.2L , Mean Corpuscular Volume 91, Mean Corpuscular Hemoglobin 30.6, Mean Corpuscular Hemoglobin Concent 33.6, Red Cell Distribution Width 11.2L, Platelet Count 187, Mean Platelet Volume 6.9, Neutrophils (%) (Auto) 63.8, Lymphocytes (%) (Auto) 23.5, Monocytes (%) (Auto) 9.3, Eosinophils (%) (Auto) 2.5, Basophils (%) (Auto) 0.9, Prothrombin Time 15.3H, Prothromb Time International Ratio 1.5H, Sodium Level 142, Potassium Level 4.1, Chloride Level 107, Carbon Dioxide Level 31, Anion Gap 5, Blood Urea Nitrogen 22H, Creatinine 0.6, Estimat Glomerular Filtration Rate , Glucose Level 95, Calcium Level 9.1 Height (Feet): 5 Height (Inches): 0.00 Weight (Pounds): 104 General Appearance: WD/WN EENT: PERRL/EOMI Neck: supple Cardiovascular: normal rate Respiratory/Chest: lungs clear Abdomen: soft Extremities: non-tender 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
[2017-05-24 12:00] VITALS: BP 108/59
--- NOTE | 2017-05-24 22:42 | General Progress Note ---
Assessment/Plan Status: stable Assessment/Plan the pt is still anxious and depressed the pt was reassured dc remeron dc ativan prn refused paxil Subjective Date patient seen: May 24, 2017 Neurologic/Psychiatric: Reports: anxiety, depressed, emotional problems Allergies: Coded Allergies: No Known Allergies (Unverified , 05/18/17) Subjective the pt was anxious and asking if there was a locker in the sniff Objective Last 24 Hour Vital Signs Date Time Temp Pulse Resp B/P (MAP) Pulse Ox O2 Delivery O2 Flow Rate FiO2 05/24/17 12:00 97.8 72 18 108/59 97 Room Air 97.8 05/24/17 08:00 97.9 78 18 110/52 94 Room Air 97.9 05/24/17 03:51 97.6 69 18 100/53 96 97.6 05/24/17 00:00 97.7 63 18 111/55 97 97.7 Intake and Output 05/23/17 05/24/17 19:00 07:00 Intake Total 720 ml Output Total 400 ml Balance 720 ml -400 ml Intake Oral 720 ml Output Urine Total 400 ml # Voids 3 2 # Bowel Movements 1 Laboratory Tests 05/24/17 05:25: White Blood Count 8.0, Red Blood Count 3.97L, Hemoglobin 12.2, Hematocrit 36.2L , Mean Corpuscular Volume 91, Mean Corpuscular Hemoglobin 30.6, Mean Corpuscular Hemoglobin Concent 33.6, Red Cell Distribution Width 11.2L, Platelet Count 187, Mean Platelet Volume 6.9, Neutrophils (%) (Auto) 63.8, Lymphocytes (%) (Auto) 23.5, Monocytes (%) (Auto) 9.3, Eosinophils (%) (Auto) 2.5, Basophils (%) (Auto) 0.9, Prothrombin Time 15.3H, Prothromb Time International Ratio 1.5H, Sodium Level 142, Potassium Level 4.1, Chloride Level 107, Carbon Dioxide Level 31, Anion Gap 5, Blood Urea Nitrogen 22H, Creatinine 0.6, Estimat Glomerular Filtration Rate , Glucose Level 95, Calcium Level 9.1 Height (Feet): 5 Height (Inches): 0.00 Weight (Pounds): 104 General Appearance: no apparent distress, alert Neurologic: oriented x 3, responsive, depressed affect Tonya Andrews M.D. May 24, 2017 22:42
--- NOTE | 2017-05-24 22:44 | Psych Consult Progress Note ---
Psych Consult Progress Note Consult 05/23/17 the pts daughter and the pt got into a fight.yelling and the daughter shut the door. the pt stated that she hated everyone. the pt denied si/hi he pt is still anxious and depressed the pt was reassured dc remeron dc ativan prn refused paxil Vital Signs Last 24 Hour Vital Signs Date Time Temp Pulse Resp B/P (MAP) Pulse Ox O2 Delivery O2 Flow Rate FiO2 05/24/17 12:00 97.8 72 18 108/59 97 Room Air 97.8 05/24/17 08:00 97.9 78 18 110/52 94 Room Air 97.9 05/24/17 03:51 97.6 69 18 100/53 96 97.6 05/24/17 00:00 97.7 63 18 111/55 97 97.7 Labs Laboratory Tests Test 05/24/17 05:25 White Blood Count 8.0 K/UL (4.8-10.8) Red Blood Count 3.97 M/UL (4.20-5.40) L Hemoglobin 12.2 G/DL (12.0-16.0) Hematocrit 36.2 % (37.0-47.0) L Mean Corpuscular Volume 91 FL (80-99) Mean Corpuscular Hemoglobin 30.6 PG (27.0-31.0) Mean Corpuscular Hemoglobin Concent 33.6 G/DL (32.0-36.0) Red Cell Distribution Width 11.2 % (11.6-14.8) L Platelet Count 187 K/UL (150-450) Mean Platelet Volume 6.9 FL (6.5-10.1) Neutrophils (%) (Auto) 63.8 % (45.0-75.0) Lymphocytes (%) (Auto) 23.5 % (20.0-45.0) Monocytes (%) (Auto) 9.3 % (1.0-10.0) Eosinophils (%) (Auto) 2.5 % (0.0-3.0) Basophils (%) (Auto) 0.9 % (0.0-2.0) Prothrombin Time 15.3 SEC (9.30-11.50) H Prothromb Time International Ratio 1.5 (0.9-1.1) H Sodium Level 142 MMOL/L (136-145) Potassium Level 4.1 MMOL/L (3.5-5.1) Chloride Level 107 MMOL/L (98-107) Carbon Dioxide Level 31 MMOL/L (21-32) Anion Gap 5 mmol/L (5-15) Blood Urea Nitrogen 22 mg/dL (7-18) H Creatinine 0.6 MG/DL (0.55-1.30) Estimat Glomerular Filtration Rate mL/min (>60) Glucose Level 95 MG/DL (74-106) Calcium Level 9.1 MG/DL (8.5-10.1) Tonya Andrews M.D. May 24, 2017 22:44
--- NOTE | 2017-05-24 22:46 | General Progress Note ---
Assessment/Plan Assessment/Plan the pt is still anxious and depressed the pt was reassured dc remeron dc ativan prn refused paxil Subjective Date patient seen: May 22, 2017 Neurologic/Psychiatric: Reports: anxiety, depressed, emotional problems Allergies: Coded Allergies: No Known Allergies (Unverified , 05/18/17) Subjective the pt was anxious. the pt was demanding. Objective Last 24 Hour Vital Signs Date Time Temp Pulse Resp B/P (MAP) Pulse Ox O2 Delivery O2 Flow Rate FiO2 05/24/17 12:00 97.8 72 18 108/59 97 Room Air 97.8 05/24/17 08:00 97.9 78 18 110/52 94 Room Air 97.9 05/24/17 03:51 97.6 69 18 100/53 96 97.6 05/24/17 00:00 97.7 63 18 111/55 97 97.7 Intake and Output 05/23/17 05/24/17 19:00 07:00 Intake Total 720 ml Output Total 400 ml Balance 720 ml -400 ml Intake Oral 720 ml Output Urine Total 400 ml # Voids 3 2 # Bowel Movements 1 Laboratory Tests 05/24/17 05:25: White Blood Count 8.0, Red Blood Count 3.97L, Hemoglobin 12.2, Hematocrit 36.2L , Mean Corpuscular Volume 91, Mean Corpuscular Hemoglobin 30.6, Mean Corpuscular Hemoglobin Concent 33.6, Red Cell Distribution Width 11.2L, Platelet Count 187, Mean Platelet Volume 6.9, Neutrophils (%) (Auto) 63.8, Lymphocytes (%) (Auto) 23.5, Monocytes (%) (Auto) 9.3, Eosinophils (%) (Auto) 2.5, Basophils (%) (Auto) 0.9, Prothrombin Time 15.3H, Prothromb Time International Ratio 1.5H, Sodium Level 142, Potassium Level 4.1, Chloride Level 107, Carbon Dioxide Level 31, Anion Gap 5, Blood Urea Nitrogen 22H, Creatinine 0.6, Estimat Glomerular Filtration Rate , Glucose Level 95, Calcium Level 9.1 Height (Feet): 5 Height (Inches): 0.00 Weight (Pounds): 104 Tonya Andrews M.D. May 24, 2017 22:46
--- NOTE | 2017-05-25 08:58 | Discharge Summary ---
Discharge Summary Discharge Summary Discharge Summary DATE OF ADMISSION: 05/18/2017 DATE OF DISCHARGE: 05/24/2017 REASON FOR ADMISSION: 86 years old female with past medical history of recently diagnosed Parkinson disease, osteoporosis dementia, presented to emergency department with a left lower extremity swelling for 2 weeks. Patient was recently diagnosed with Parkinson disease and stays in the bed for prolonged periods of time. Patient reported recent trauma when she was sitting in the chair. Venous duplex of left lower extremity revealed evidence of acute occlusive thrombus in the common femoral vein to the distal superficial femoral vein. Patient was given Lovenox. WBC -11.8, mild thrombocytopenia with platelet count 145, stable hemoglobin and hematocrit, stable electrolytes. Troponin with mild elevation - 0.1. EKG revealed normal sinus rhythm, no acute ischemic changes. Patient was admitted with diagnosis of acute DVT left lower extremity HOSPITAL COURSE: Patient was admitted. Hematology and psychiatric consults were requested. Patient initially was on anticoagulation with Lovenox and Coumadin to bridge to therapeutic INR in range 2-3. Patient subsequently was switched to Xarelto prior to discharge. GI prophylaxis provided. X-ray of the left tibia/fibula revealed no evidence of acute fracture. X-ray left femur showed no acute process, but revealed osteoporosis. Mild initial leukocytosis resolved, likely was reactive secondary to acute DVT. Platelet count stabilized, prior to discharge -187. Repeated troponin was negative. Patient had no cardiac symptoms. It was felt that single episode of elevated troponin likely was related to acute DVT and no further workup was initiated. Psychiatrist seen and evaluated the patient and diagnosed patient with major depressive disorder and anxiety disorder. Patient initially was on Remeron and Ativan as needed. Prior to discharge patient had a major confrontation with her daughter, she felt depressed and anxious. Psychiatrist seen the patient right after this confrontation. Remeron and Ativan were discontinued. Patient declined Paxil. [facility]. Patient will benefit from the penitentiary facility, including physical and occupational therapy and supervised nursing care. Patient and daughter agreed with the transfer. FINAL DIAGNOSES: 1. Acute DVT left lower extremity. 2. Leukocytosis, resolved ( likely was reactive due to acute DVT). 3. Dementia 4. Major depressive disorder. 5. Anxiety disorder. 6. Parkinson disease 1. Single episode of abnormal troponin resolved ( likely due to acute DVT, no cardiac complaints) DISCHARGE MEDICATIONS: See Medication Reconciliation list. DISCHARGE INSTRUCTIONS: Patient was discharged to the [facility] facility. Follow up with medical doctor at the facility. I have been assigned to dictate discharge summary for this account. I was not involved in the patient's management. Ky OrtizSandie ruiz NP May 25, 2017 08:58
--- NOTE | 2017-05-25 19:43 | General Progress Note ---
Assessment/Plan Assessment/Plan 1. Acute deep vein thrombosis of the left lower extremity. --> Currently, begin the patient on Coumadin as well as Lovenox. --> Maintain INR between 2 and 3. Monitor closely. --> Begin apeix and warfarin 2. Anemia of chronic disease. Mild at this time. --> Continue to closely monitor for improvement. Hemoglobin goal is above 7. --> Blood transfusion not required unless symptomatic or hgb below goal --> Hemoglobin has been stable, no prbc needed at this time 3. Pancytopenia, likely secondary to underlying liver disease. --> Closely monitor for improvement. Platelet count 130,000. --> Levels improving. 4. Hypertension, systolic blood pressure goal less than 140. --> BP improved. 5. Parkinson disease. Continue to closely monitor for improvement. 6. Anxiety. --> On ativan. Subjective Date patient seen: May 24, 2017 Constitutional: Denies: no symptoms, chills, diaphoresis, fever, malaise, weakness, other HEENT: Denies: no symptoms, eye pain, blurred vision, tearing, double vision, ear pain, ear discharge, nose pain, nose congestion, throat pain, throat swelling, mouth pain, mouth swelling, other Cardiovascular: Denies: no symptoms, chest pain, edema, irregular heart rate, lightheadedness, palpitations, syncope, other Respiratory: Denies: no symptoms, cough, orthopnea, shortness of breath, SOB with excertion, SOB at rest, sputum, stridor, wheezing, other Gastrointestinal/Abdominal: Denies: no symptoms, abdomen distended, abdominal pain, black stools, tarry stools, blood in stool, constipated, diarrhea, difficulty swallowing, nausea, poor appetite, poor fluid intake, rectal bleeding , vomiting, other Genitourinary: Denies: no symptoms, burning, discharge, frequency, flank pain, hematuria, incontinence, pain, urgency, other Neurologic/Psychiatric: Denies: no symptoms, anxiety, depressed, emotional problems, headache, numbness, paresthesia, pre-existing deficit, seizure, tingling, tremors, weakness, other Allergies: Coded Allergies: No Known Allergies (Unverified , 05/18/17) Subjective Patient anxious. Anemia mild. Objective Intake and Output 05/24/17 05/25/17 19:00 07:00 # Voids 1 Height (Feet): 5 Height (Inches): 0.00 Weight (Pounds): 104 General Appearance: agitated Respiratory/Chest: decreased breath sounds Edema: trace edema Enrique Abad MD May 25, 2017 19:43
[2017-06-13] MEDS ORDERED: Xarelto 10mg tab ORAL SCH (18:00)
== END 2017-05-24 13:30 | DRG 300 ==
LOC: EMR 14:20 → 2E 15:33 → EDBEDREQ 15:59 → 4E 05-20 13:43
DX: I82.402 Acute embolism and thrombosis of unspecified deep veins of left lower extremity (principal); D61.818 Other pancytopenia; G20 Parkinson's disease; F32.9 Major depressive disorder, single episode, unspecified; F41.9 Anxiety disorder, unspecified; F02.80 Dementia in other diseases classified elsewhere, unspecified severity, without behavioral disturbance, psychotic disturbance, mood disturbance, and anxiety; I10 Essential (primary) hypertension; R74.8 Abnormal levels of other serum enzymes; D63.8 Anemia in other chronic diseases classified elsewhere
CPT/HCPCS: 36415; 71045; 80048; 80053; 80061; 82248; 83036; 83880; 84443; 84484; 85025; 85379; 85610; 85730; 93005; 93971; 99285